=== PATIENT | male | born 1960 | race Hispanic/Latino ===

== ENCOUNTER 2022-11-14 19:19 | Emergency (ER) | payer SELFPAY ==
[2022-11-14] MEDS ORDERED: Vancomycin IV 1 GM in SODIUM CHLORIDE 0.9% 250ML 250 ML IV SCH (19:30)
== END 2022-11-14 19:58 | disposition left against medical advice (07) ==
LOC: ER 19:25
DX: M79.605 Pain in left leg (principal); L03.116 Cellulitis of left lower limb

== ENCOUNTER 2024-07-15 21:07 | Emergency (ER) | payer SELFPAY ==
[~2024-07-15] VITALS: Ht 157.5 cm; Wt 70.3 kg
[2024-07-15 21:21] VITALS: PULSE 90; RESP 18; TEMP 98.3
[2024-07-15] MEDS: KETOROLAC TROMETHAMINE 30 MG/ML VIAL IV STA (21:38)
[2024-07-15 21:45] LABS: BASOPHILS % 0.2 % (0.0-1.0); EOSINOPHILS % 0.1 % (0.0-6.0); HEMOGLOBIN 12.8 g/dL (14.0-18.0); LYMPHOCYTES # (AUTO) 1.1 (1.0-3.2); LYMPHOCYTES % 11.2 % (18.0-39.1); MEAN CORPUSCULAR HEMOGLOBIN 30.3 pg (28-32); MEAN CORPUSCULAR HGB CONC 34.6 g/dL (31-35); MEAN CORPUSCULAR VOLUME 87.5 fL (81-99); MONOCYTES % 9.9 % (4.4-11.3); NEUTROPHILS # (AUTO) 7.7 (2.1-6.9); NEUTROPHILS % 78.4 % (38.7-80.0); PLATELET COUNT 175 x10e3/uL (140-360); RED BLOOD COUNT 4.23 x10e6/uL (4.3-5.7); RED CELL DISTRIBUTION WIDTH 11.9 % (11.7-14.4); WHITE BLOOD COUNT 9.83 x10e3/uL (4.8-10.8)
[2024-07-15 22:04] LABS: ALBUMIN 3.5 g/dL (3.5-5.0); ALBUMIN/GLOBULIN RATIO 0.9 (0.8-2.0); ANION GAP 27.6 mmol/L (8-16); BILIRUBIN,TOTAL 0.6 mg/dL (0.2-1.2); CREATININE, SERUM 1.25 mg/dL (0.72-1.25); POTASSIUM 3.6 mmol/L (3.5-5.1); TOTAL PROTEIN 7.4 g/dL (6.5-8.1)
[2024-07-15] MEDS ORDERED: KETOROLAC TROME10 MG PO (22:17)
[2024-07-15 22:20] VITALS: BP 173/82; PULSE 83; RESP 20; TEMP 98.4; O2SAT 99
== END 2024-07-15 22:24 | disposition home or self-care (01) ==
LOC: ER 21:10
DX: M79.602 Pain in left arm (principal); Y93.H9 Activity, other involving exterior property and land maintenance, building and construction; I10 Essential (primary) hypertension; E11.65 Type 2 diabetes mellitus with hyperglycemia; Z86.73 Personal history of transient ischemic attack (TIA), and cerebral infarction without residual deficits
CPT/HCPCS: 36415; 73090; 80053; 82550; 85025; 99284; J1885

== ENCOUNTER 2024-07-22 20:06 | Inpatient (IN) | payer SELFPAY ==
[~2024-07-22] VITALS: Ht 157.5 cm; Wt 70.3 kg
[~2024-07-22 20:06] MED LIST: KETOROLAC TROME10 MG PO
[2024-07-22 20:37] VITALS: TEMP 98
[2024-07-22 20:48] LABS: BASOPHILS % 0.3 % (0.0-1.0); EOSINOPHILS % 0.3 % (0.0-6.0); HEMATOCRIT 37.4 % (38.2-49.6); HEMOGLOBIN 12.5 g/dL (14.0-18.0); LYMPHOCYTES # (AUTO) 0.9 (1.0-3.2); LYMPHOCYTES % 10.2 % (18.0-39.1); MEAN CORPUSCULAR HEMOGLOBIN 29.8 pg (28-32); MEAN CORPUSCULAR HGB CONC 33.4 g/dL (31-35); MONOCYTES # (AUTO) 1.2 (0.2-0.8); NEUTROPHILS # (AUTO) 6.8 (2.1-6.9); PLATELET COUNT 304 x10e3/uL (140-360); RED CELL DISTRIBUTION WIDTH 11.9 % (11.7-14.4)
[2024-07-22 21:00] VITALS: BP 161/93; PULSE 88; RESP 20; TEMP 98.1; O2SAT 98
[2024-07-22 21:06] LABS: ALBUMIN 2.8 g/dL (3.5-5.0); ALBUMIN/GLOBULIN RATIO 0.6 (0.8-2.0); ANION GAP 17.4 mmol/L (8-16); BILIRUBIN,TOTAL 0.5 mg/dL (0.2-1.2); CALCIUM 10.4 mg/dL (8.4-10.2); CREATININE, SERUM 1.44 mg/dL (0.72-1.25); POTASSIUM 4.4 mmol/L (3.5-5.1); TOTAL PROTEIN 7.7 g/dL (6.5-8.1)
[2024-07-22] MEDS: INSULIN REGULAR, HUMAN 100 UNIT/1 ML IV STA (21:18)
[2024-07-22] MEDS ORDERED: INSULIN REGULAR, HUMAN 100 UNIT/1 ML ONE (21:20)
[2024-07-22] MEDS: SODIUM CHLORIDE 0.9% 1000ML 1,000 ML IV STA (21:22)
[2024-07-22 21:25] VITALS: PULSE 88; RESP 19
[2024-07-22] MEDS ORDERED: POLYETHYLENE GLYCOL 3350 17 GM PACK PO PRN (21:45)
[2024-07-22] MEDS ORDERED: ACETAMINOPHEN 325 MG TAB PO PRN (21:45)
[2024-07-22] MEDS ORDERED: DEXTROSE 50% SYRINGE 50 ML IV PRN (22:15)
[2024-07-22 22:56] VITALS: PULSE 88; RESP 16; O2SAT 100
[2024-07-22] MEDS: Vancomycin IV 1 GM in SODIUM CHLORIDE 0.9% 250ML 250 ML IV SCH (23:07)
[2024-07-22] MEDS: Morphine 4mg INJECTION 4 MG/ML INJ IV PRN (23:27)
[2024-07-22] MEDS: ONDANSETRON HCL INJ 2MG/ML 2ML 2 MG/ML VIAL IV PRN (23:27)
[2024-07-22] MEDS: HYDRALAZINE HCL 20 MG/ML VIAL IV PRN (23:35)
[2024-07-23] VITALS (10 sets, daily range): BP systolic 160–192; BP diastolic 84–88; PULSE 70–88; RESP 16–20; TEMP 98–99.7; O2SAT 96–100
[2024-07-23 05:28] LABS: BASOPHILS % 0.2 % (0.0-1.0); EOSINOPHILS % 0.5 % (0.0-6.0); HEMATOCRIT 36.2 % (38.2-49.6); LYMPHOCYTES # (AUTO) 1.1 (1.0-3.2); MEAN CORPUSCULAR HEMOGLOBIN 29.9 pg (28-32); MEAN CORPUSCULAR HGB CONC 33.1 g/dL (31-35); MEAN CORPUSCULAR VOLUME 90.3 fL (81-99); MONOCYTES # (AUTO) 1.1 (0.2-0.8); MONOCYTES % 12.2 % (4.4-11.3); NEUTROPHILS # (AUTO) 6.5 (2.1-6.9); NEUTROPHILS % 73.8 % (38.7-80.0); PLATELET COUNT 309 x10e3/uL (140-360); RED BLOOD COUNT 4.01 x10e6/uL (4.3-5.7); RED CELL DISTRIBUTION WIDTH 11.9 % (11.7-14.4)
[2024-07-23 05:50] LABS: ALBUMIN 2.4 g/dL (3.5-5.0); ALBUMIN/GLOBULIN RATIO 0.6 (0.8-2.0); ANION GAP 13.6 mmol/L (8-16); BILIRUBIN,TOTAL 0.4 mg/dL (0.2-1.2); CHOL/HDL RATIO 6.1 (3.9-4.7); CREATININE, SERUM 1.2 mg/dL (0.72-1.25); MAGNESIUM 2.3 MG/DL (1.3-2.1); PHOSPHORUS 2.4 MG/DL (2.3-4.7); POTASSIUM 4.6 mmol/L (3.5-5.1); TOTAL PROTEIN 6.7 g/dL (6.5-8.1)
[2024-07-23 06:14] LABS: FREE T4 (FREE THYROXINE) 1.24 ng/dL (0.8-1.8); THYROID STIMULATING HORMONE 1.716 uIU/mL (0.350-4.940)
[2024-07-23] MEDS: INSULIN REGULAR, HUMAN 100 UNIT/1 ML SQ SCH (08:44)
[2024-07-23] MEDS: DOCUSATE SODIUM 100 MG CAP PO SCH (10:03)
[2024-07-23] MEDS: HYDROCODONE/APAP 5MG-325MG TAB PO PRN (17:49)
[2024-07-24] VITALS (8 sets, daily range): BP systolic 142–191; BP diastolic 80–93; PULSE 79–100; RESP 16–20; TEMP 98.2–99.7; O2SAT 96–100
[2024-07-24] MEDS ORDERED: FENTANYL CITRATE/PF 100MCG/2 ML INJ ONE (13:13)
[2024-07-25] VITALS (10 sets, daily range): BP systolic 165–186; BP diastolic 79–96; PULSE 89–103; RESP 18–21; TEMP 98.5–99.2; O2SAT 98–99
[2024-07-25] MEDS: AMLODIPINE BESYLATE 5 MG TAB PO ONE (01:52)
[2024-07-25 05:52] LABS: BASOPHILS % 0.3 % (0.0-1.0); EOSINOPHILS % 0.2 % (0.0-6.0); HEMATOCRIT 32.1 % (38.2-49.6); HEMOGLOBIN 10.6 g/dL (14.0-18.0); LYMPHOCYTES # (AUTO) 1.1 (1.0-3.2); LYMPHOCYTES % 11.7 % (18.0-39.1); MEAN CORPUSCULAR HEMOGLOBIN 29.9 pg (28-32); MEAN CORPUSCULAR VOLUME 90.4 fL (81-99); MONOCYTES # (AUTO) 1.2 (0.2-0.8); MONOCYTES % 12.6 % (4.4-11.3); NEUTROPHILS # (AUTO) 7.1 (2.1-6.9); NEUTROPHILS % 74.8 % (38.7-80.0); PLATELET COUNT 334 x10e3/uL (140-360); RED BLOOD COUNT 3.55 x10e6/uL (4.3-5.7); RED CELL DISTRIBUTION WIDTH 12.1 % (11.7-14.4); WHITE BLOOD COUNT 9.48 x10e3/uL (4.8-10.8)
[2024-07-25 06:28] LABS: ANION GAP 13.7 mmol/L (8-16); CALCIUM 8.8 mg/dL (8.4-10.2); CREATININE, SERUM 1.02 mg/dL (0.72-1.25); MAGNESIUM 2.1 MG/DL (1.3-2.1); PHOSPHORUS 2.9 MG/DL (2.3-4.7); POTASSIUM 3.7 mmol/L (3.5-5.1)
[2024-07-25] MEDS: PANTOPRAZOLE SOD 40 MG TABEC PO SCH (08:11)
[2024-07-25] MEDS: AMLODIPINE BESYLATE 5 MG TAB PO SCH (08:15)
[2024-07-25 08:16] LABS: RHEUMATOID FACTOR 17.3 IU/mL (<14.0)
[2024-07-25 09:10] LABS: FERRITIN 959.17 ng/mL (21.81-274.66)
[2024-07-25 09:22] LABS: FOLATE 9.4 ng/mL (7.0-15.4)
[2024-07-25] MEDS ORDERED: LIDOCAINE HCL 1% LOCAL INJ 20 ML VIAL ONE (14:39)
[2024-07-25 16:02] LABS: BODY FLUID APPEARANCE CLOUDY; BODY FLUID COLOR YELLOW
[2024-07-25 16:03] LABS: BODY FLUID TYPE LEFT SHOUDER FLUID
[2024-07-25 16:12] LABS: BODY FLUID TYPE ABSCESS
[2024-07-25 16:13] LABS: BODY FLUID APPEARANCE CLOUDY; BODY FLUID COLOR STRAW
[2024-07-25] MEDS: METHYLPREDNISOLONE SOD SUCC 40 MG/ML VIAL 1ML IV SCH (16:46)
[2024-07-25 18:17] LABS: RBC,BODY FLUID 16000 cells/uL; WBC,BODY FLUID 118956 cells/uL
[2024-07-25 18:56] LABS: LYMPHOCYTES,BODY FLUID 5 %; NEUTROPHILS,BODY FLUID 95 %
[2024-07-25 19:02] LABS: TOTAL CELLS COUNTED (DIFF) 100
[2024-07-25 19:02] LABS: LYMPHOCYTES,BODY FLUID 3 %; NEUTROPHILS,BODY FLUID 97 %
[2024-07-25 19:06] LABS: RBC,BODY FLUID 7000 cells/uL; TOTAL CELLS COUNTED (DIFF) 100; WBC,BODY FLUID 1024 cells/uL
[2024-07-26] VITALS (10 sets, daily range): BP systolic 152–173; BP diastolic 71–88; PULSE 68–93; RESP 17–20; TEMP 97.5–99; O2SAT 97–99
[2024-07-26] MEDS: LABETALOL HCL 5 MG/ML 20ML VIAL IV STA (03:05)
[2024-07-26 06:03] LABS: BASOPHILS % 0.1 % (0.0-1.0); HEMATOCRIT 32.3 % (38.2-49.6); HEMOGLOBIN 10.3 g/dL (14.0-18.0); LYMPHOCYTES # (AUTO) 0.6 (1.0-3.2); LYMPHOCYTES % 6.7 % (18.0-39.1); MEAN CORPUSCULAR HEMOGLOBIN 29.3 pg (28-32); MEAN CORPUSCULAR HGB CONC 31.9 g/dL (31-35); MEAN CORPUSCULAR VOLUME 91.8 fL (81-99); MONOCYTES # (AUTO) 0.5 (0.2-0.8); MONOCYTES % 5.4 % (4.4-11.3); NEUTROPHILS # (AUTO) 7.6 (2.1-6.9); NEUTROPHILS % 87.1 % (38.7-80.0); PLATELET COUNT 357 x10e3/uL (140-360); RED BLOOD COUNT 3.52 x10e6/uL (4.3-5.7); WHITE BLOOD COUNT 8.71 x10e3/uL (4.8-10.8)
[2024-07-26 06:35] LABS: ANION GAP 14.1 mmol/L (8-16); CREATININE, SERUM 0.99 mg/dL (0.72-1.25); POTASSIUM 4.1 mmol/L (3.5-5.1)
[2024-07-26] MEDS: METOPROLOL TARTRATE 25 MG TAB PO SCH (08:36)
[2024-07-26] MEDS: INSULIN LISPRO 100 UNIT/1 ML 3ML VIAL SQ ONE (12:57)
[2024-07-26] MEDS: METFORMIN HCL 500 MG TAB PO SCH (17:04)
[2024-07-26] MEDS: INSULIN LISPRO 100 UNIT/1 ML 3ML VIAL SQ SCH (22:03)
[2024-07-27] VITALS (11 sets, daily range): BP systolic 135–159; BP diastolic 67–92; PULSE 70–89; RESP 16–18; TEMP 97.2–98.2; O2SAT 94–100
[2024-07-27 06:04] LABS: BASOPHILS % 0.2 % (0.0-1.0); EOSINOPHILS % 0.2 % (0.0-6.0); HEMATOCRIT 34.3 % (38.2-49.6); HEMOGLOBIN 11.2 g/dL (14.0-18.0); LYMPHOCYTES % 14.8 % (18.0-39.1); MEAN CORPUSCULAR HEMOGLOBIN 29.7 pg (28-32); MEAN CORPUSCULAR HGB CONC 32.7 g/dL (31-35); MONOCYTES # (AUTO) 1.2 (0.2-0.8); MONOCYTES % 9.3 % (4.4-11.3); NEUTROPHILS # (AUTO) 9.9 (2.1-6.9); PLATELET COUNT 457 x10e3/uL (140-360); RED BLOOD COUNT 3.77 x10e6/uL (4.3-5.7); RED CELL DISTRIBUTION WIDTH 12.1 % (11.7-14.4); WHITE BLOOD COUNT 13.22 x10e3/uL (4.8-10.8)
[2024-07-27 06:27] LABS: ANION GAP 14.5 mmol/L (8-16); CALCIUM 9.9 mg/dL (8.4-10.2); CREATININE, SERUM 1.16 mg/dL (0.72-1.25); POTASSIUM 4.5 mmol/L (3.5-5.1)
[2024-07-27] MEDS ORDERED: EPINEPHRINE 1 MG/ML 30ML VIAL ONE (06:45)
[2024-07-27] MEDS ORDERED: Vancomycin IV 0 MG ONE (06:46)
[2024-07-27] MEDS ORDERED: KETAMINE HCL INJ 50 MG/ML 10 ML VIAL ONE (06:57)
[2024-07-27] MEDS ORDERED: MIDAZOLAM HCL 2 MG/2 ML VIAL ONE (06:58)
[2024-07-27] MEDS ORDERED: ACETAMINOPHEN 650 MG SUPP PR PRN (08:00)
[2024-07-27] MEDS ORDERED: ONDANSETRON HCL INJ 2MG/ML 2ML 2 MG/ML VIAL IV PRN (08:00)
[2024-07-27] MEDS ORDERED: KETOROLAC TROMETHAMINE 30 MG/ML VIAL IV PRN (08:00)
[2024-07-27] MEDS ORDERED: DOCUSATE SODIUM 100 MG CAP PO PRN (08:00)
[2024-07-27] MEDS ORDERED: ZOLPIDEM TARTRATE 5 MG TAB PO PRN (08:00)
[2024-07-27] MEDS ORDERED: DIPHENHYDRAMINE HCL INJ 50 MG/ML VIAL IV PRN (08:00)
[2024-07-27] MEDS: CELECOXIB 200 MG CAP PO SCH (10:01)
[2024-07-27] MEDS: Vancomycin IV 1 GM in SODIUM CHLORIDE 0.9% 250ML 250 ML IV SCH (10:01)
[2024-07-27] MEDS: AMLODIPINE BESYLATE 5 MG TAB PO SCH (10:01)
[2024-07-27] MEDS: METOPROLOL SUCCINATE 25 MG TAB XL PO SCH (10:02)
[2024-07-27] MEDS: SODIUM CHLORIDE 0.9% 1000ML 1,000 ML IV SCH (10:02)
[2024-07-27] MEDS ORDERED: DEXAMETHASONE SOD PHOS INJ 4 MG/ML SDV ONE (13:09)
[2024-07-27] MEDS ORDERED: SUGAMMADEX SODIUM 200 MG/2 ML VIAL IV ONE (13:09)
[2024-07-27] MEDS ORDERED: PROPOFOL IV EMULSION 10 MG/ML 20 ML VIAL ONE (13:09)
[2024-07-27] MEDS ORDERED: LIDOCAINE HCL 2% LOCAL INJ 5 ML SDV VIAL INJ ONE (13:09)
[2024-07-27] MEDS ORDERED: ACETAMINOPHEN 1000 MG/100 ML IV ONE (13:09)
[2024-07-27] MEDS ORDERED: KETOROLAC TROMETHAMINE 30 MG/ML VIAL ONE (13:09)
[2024-07-27] MEDS ORDERED: PHENYLEPHRINE HCL 1% 10 MG/ML VIAL ONE (13:09)
[2024-07-27] MEDS ORDERED: SUCCINYLCHOLINE CHLORIDE 20 MG/ML 10ML VIAL ONE (13:09)
[2024-07-27] MEDS ORDERED: SEVOFLURANE INHAL SOLN 250 ML PEN BTL ONE (13:09)
[2024-07-27] MEDS ORDERED: ROCURONIUM BROMIDE 10 MG/ML 5ML VIAL IV ONE (13:09)
[2024-07-27] MEDS ORDERED: ONDANSETRON HCL INJ 2MG/ML 2ML 2 MG/ML VIAL ONE (13:09)
[2024-07-28 04:00] VITALS: BP 144/75; PULSE 71; RESP 16; TEMP 98.5; O2SAT 97
[2024-07-28] MEDS ORDERED: ACETAMINOPHEN 1000 MG/100 ML IV PRN (08:00)
[2024-07-28 08:18] VITALS: BP 159/84; PULSE 71; RESP 18; TEMP 98.6; O2SAT 98
[2024-07-28 08:45] VITALS: BP 159/84; PULSE 71; RESP 18; TEMP 98.6; O2SAT 98
[2024-07-28 10:57] VITALS: BP 185/90; PULSE 68; RESP 18; TEMP 98.1; O2SAT 99
[2024-07-28] MEDS: HYDROCODONE/APAP 7.5MG-325MG 1 EA TAB PO PRN (13:55)
[2024-07-28] MEDS ORDERED: METOPROLOL SUCC25 MG PO (14:07)
[2024-07-28] MEDS ORDERED: METFORMIN HCL500 MG PO (14:08)
[2024-07-28] MEDS ORDERED: NORVASC10 MG PO (14:08)
[2024-07-28] MEDS ORDERED: KEFLEX125 MG/5 M PO (14:09)
[2024-07-28] MEDS ORDERED: TYLENOL325 MG PO (14:10)
[2024-07-28] MEDS ORDERED: ONDANSETRON HCL 4 MG ORAL DISINTEGRATING TAB PO PRN (14:15)
== END 2024-07-28 14:57 | disposition home or self-care (01) | DRG 501 ==
LOC: ER 20:12 → ERHOLD 21:07 → MED/SURG2 22:00 → OBSVTOIN 07-24 10:40
PROVIDERS: ADMIT Internal Medicine; ATTEND Internal Medicine
PROC: 0R9K3ZZ Drainage of Left Shoulder Joint, Percutaneous Approach (ICD-10-PCS; 2024-07-25)
PROC: 0X973ZZ Drainage of Left Upper Extremity, Percutaneous Approach (ICD-10-PCS; 2024-07-25)
PROC: 0R9K4ZZ Drainage of Left Shoulder Joint, Percutaneous Endoscopic Approach (ICD-10-PCS; 2024-07-27)
PROC: 0MB24ZZ Excision of Left Shoulder Bursa and Ligament, Percutaneous Endoscopic Approach (ICD-10-PCS; principal; 2024-07-27 07:06)
DX: M00.812 Arthritis due to other bacteria, left shoulder (principal); L02.414 Cutaneous abscess of left upper limb; L03.114 Cellulitis of left upper limb; B95.61 Methicillin susceptible Staphylococcus aureus infection as the cause of diseases classified elsewhere; E11.65 Type 2 diabetes mellitus with hyperglycemia; I10 Essential (primary) hypertension; M25.412 Effusion, left shoulder; Z79.84 Long term (current) use of oral hypoglycemic drugs; Z86.73 Personal history of transient ischemic attack (TIA), and cerebral infarction without residual deficits
CPT/HCPCS: 10160; 36415; 74470; 76942; 80048; 80053; 80061; 80202; 82607; 82728; 82746; 82948; 83036; 83540; 83735; 84100; 84439; 84443; 84466; 84550; 85025; 85045; 86039; 86140; 86431; 87071; 87075; 87186; 87205; 89051; 93306; 94799; 96372; 99252; 99284; G0378; J0330; J0360; J1100; J1885; J2003; J2250; J2270; J2371; J2405; J2543; J2919; J3370; J7030; J7050